=== PATIENT | female | born 2000 | race Caucasian/White ===

== ENCOUNTER → 2018-03-21 | Outpatient (CLI) | payer MEDICAID ==
[~2018-03-21] MED LIST: TOPI100T PO
[2018-03-21 09:48] LABS: HEMOGLOBIN 13.4 G/DL (11.5-16.0); RED BLOOD COUNT 4.56 10^6/uL (4.35-5.85); RED CELL DISTRIBUTION WIDTH 14.1 % (10.0-14.5); WHITE BLOOD COUNT 9.7 10^3/uL (4.3-11.0)
[2018-03-21 10:05] LABS: ALANINE AMINOTRANSFERASE 14 U/L (0-55); ALBUMIN 4.2 GM/DL (3.2-4.5); ALKALINE PHOSPHATASE 125 U/L (40-136); BILIRUBIN,TOTAL 0.3 MG/DL (0.1-1.0); BUN/CREATININE RATIO 20; CALCIUM 8.8 MG/DL (8.5-10.1); CARBON DIOXIDE 16 MMOL/L (21-32); CHLORIDE 113 MMOL/L (98-107); CREATININE SERUM 0.69 MG/DL (0.60-1.30); GFR ESTIMATED > 60; GLUCOSE 80 MG/DL (70-105); POTASSIUM 3.9 MMOL/L (3.6-5.0); SODIUM 137 MMOL/L (135-145)
== END ==
LOC: LAB 09:32
PROVIDERS: ATTEND Psychiatry & Neurology Neurology
DX: G40.909 Epilepsy, unspecified, not intractable, without status epilepticus (principal)
CPT/HCPCS: 36415; 80053; 85027

== ENCOUNTER → 2019-02-13 | Outpatient (CLI) | payer MEDICAID ==
[2019-02-13 14:39] LABS: HEMOGLOBIN 13.7 G/DL (11.5-16.0); MEAN PLATELET VOLUME 11.2 FL (7.4-10.4); RED CELL DISTRIBUTION WIDTH 14.3 % (10.0-14.5); WHITE BLOOD COUNT 7.8 10^3/uL (4.3-11.0)
[2019-02-13 15:02] LABS: ALANINE AMINOTRANSFERASE 15 U/L (0-55); ALBUMIN 4.4 GM/DL (3.2-4.5); ALKALINE PHOSPHATASE 132 U/L (40-136); BILIRUBIN,TOTAL 0.2 MG/DL (0.1-1.0); BUN/CREATININE RATIO 22; CALCIUM 9.4 MG/DL (8.5-10.1); CARBON DIOXIDE 18 MMOL/L (21-32); CHLORIDE 111 MMOL/L (98-107); CREATININE SERUM 0.67 MG/DL (0.60-1.30); GFR ESTIMATED > 60; GLUCOSE 80 MG/DL (70-105); SODIUM 137 MMOL/L (135-145); TOTAL PROTEIN 7.2 GM/DL (6.4-8.2)
== END ==
LOC: LAB 14:28
PROVIDERS: ATTEND Psychiatry & Neurology Neurology
DX: R56.9 Unspecified convulsions (principal)
CPT/HCPCS: 36415; 80053; 85027

== ENCOUNTER 2020-05-14 18:51 | Emergency (ER) | payer MEDICAID ==
[~2020-05-14] VITALS: Ht 63.6 cm; Wt 216.0 kg
[2020-05-14 19:17] LABS: BASOPHILS # (AUTO) 0.1 10^3/uL (0.0-0.1); BASOPHILS % (AUTO) 1 % (0-10); EOSINOPHILS # (AUTO) 0.1 10^3/uL (0.0-0.3); EOSINOPHILS % (AUTO) 1 % (0-10); HEMATOCRIT 37 % (35-52); HEMOGLOBIN 12.1 G/DL (11.5-16.0); LYMPHOCYTES # (AUTO) 2.3 X 10^3 (1.0-4.0); LYMPHOCYTES % (AUTO) 19 % (12-44); MEAN CORPUSCULAR HEMOGLOBIN 29 PG (25-34); MEAN CORPUSCULAR HGB CONC 33 G/DL (32-36); MEAN CORPUSCULAR VOLUME 88 FL (80-99); MEAN PLATELET VOLUME 11.3 FL (7.4-10.4); MONOCYTES % (AUTO) 8 % (0-12); NEUTROPHILS # (AUTO) 8.8 X 10^3 (1.8-7.8); NEUTROPHILS % (AUTO) 72 % (42-75); PLATELET COUNT 343 10^3/uL (130-400); RED CELL DISTRIBUTION WIDTH 13.2 % (10.0-14.5); WHITE BLOOD COUNT 12.3 10^3/uL (4.3-11.0)
[2020-05-14 19:27] LABS: ALANINE AMINOTRANSFERASE 23 U/L (0-55); ALBUMIN 4.1 GM/DL (3.2-4.5); ALKALINE PHOSPHATASE 123 U/L (40-136); BILIRUBIN,TOTAL 0.2 MG/DL (0.1-1.0); BUN/CREATININE RATIO 11; CALCIUM 9.3 MG/DL (8.5-10.1); CARBON DIOXIDE 21 MMOL/L (21-32); CHLORIDE 104 MMOL/L (98-107); CREATININE SERUM 0.65 MG/DL (0.60-1.30); GFR ESTIMATED > 60; GLUCOSE 83 MG/DL (70-105); MAGNESIUM 1.9 MG/DL (1.6-2.4); POTASSIUM 3.6 MMOL/L (3.6-5.0); SODIUM 136 MMOL/L (135-145); TOTAL PROTEIN 7.4 GM/DL (6.4-8.2)
[2020-05-14 19:43] LABS: BILIRUBIN,URINE NEGATIVE (NEGATIVE); CLARITY,URINE CLOUDY; COLOR,URINE YELLOW; GLUCOSE, URINE (UA) NEGATIVE (NEGATIVE); KETONES,URINE 1+ (NEGATIVE); LEUKOCYTE ESTERASE ,URINE NEGATIVE (NEGATIVE); NITRITE,URINE NEGATIVE (NEGATIVE); PROTEIN,URINE 2+ (NEGATIVE)
[2020-05-14 19:47] LABS: TSH (THYROID ANALYZER) 0.74 UIU/ML (0.35-4.94)
--- NOTE | 2020-05-14 19:48 | ED Neurological Problem ---
General Chief Complaint: Neurological Problems Stated Complaint: SEIZURE Nursing Triage Note: patient at park on phone with mom, mom states patient quit talking to her, when mom arrived to [place] patient sitting on bench. slurring words. . hx seizure disorder. approx 9 wks preg. complaint of back pain and facial pain. left side eye bruising and abrasions. Nursing Sepsis Screen: No Definite Risk Source: patient, family Exam Limitations: no limitations History of Present Illness Date Seen by Provider: May 14, 2020 Time Seen by Provider: 18:53 Initial Comments This 20-year-old young lady at approximately 9 weeks gestational age presents to the emergency room after having a seizure. She has epilepsy and cerebral palsy with some chronic right-sided deficits. She has been treated for epilepsy and has not had a seizure in 3 years. When she discovered the her medications were adjusted/changed by Dr. Whittington and Dr. Sánchez. She now takes Keppra 1000 mg twice daily and Lamictal 100 mg twice daily. Patient reportedly was having a conversation with her mother on the phone when she stated she was feeling numbness in her extremities and then suddenly stopped talking. Mother drove from out of town to the park where the patient had been sitting at a picnic table. When mother arrived she found her sitting at the table but with an abrasion on her face. Apparently the patient had fallen to the ground from a sitting position resulting in the abrasion. She was ambulatory on scene but seem post ictal with a little bit of a wobbly gait and some slurring of her words. She is now at baseline according to mother. Mother brought her by private vehicle. Patient's history was discussed with Dr. Landry who reviewed the clinic chart and her recent medication changes. LMP was March 15. She has not yet had an ultrasound. Allergies and Home Medications Allergies Coded Allergies: phenobarbital (Verified Allergy, Intermediate, 10/11/13) seizures last longer egg (Verified Allergy, Unknown, ANAPHYLAXIS, 10/11/13) Home Medications Topiramate 100 Mg Tab, 100 MG PO BID, (Reported) Patient Home Medication List Home Medication List Reviewed: Yes Review of Systems Review of Systems Constitutional: no symptoms reported Eyes: No Symptoms Reported Ears, Nose, Mouth, Throat: no symptoms reported Respiratory: no symptoms reported Cardiovascular: no symptoms reported Gastrointestinal: no symptoms reported : Yes LMP: March 15, 2010 Musculoskeletal: no symptoms reported Skin: see HPI Psychiatric/Neurological: See HPI Endocrine: No Symptoms Reported Hematologic/Lymphatic: No Symptoms Reported Past Jckilal-Kuoioc-Bricxk Hx Past Med/Social Hx: Reviewed and Corrections made Patient Social History 2nd Hand Smoke Exposure: No Recent Foreign Travel: No Contact w/Someone Who Travel: No Recent Infectious Disease Expo: No Recent Hopitalizations: No Physical Abuse: No Sexual Abuse: No Mistreated: No Fear: No Seasonal Allergies Seasonal Allergies: No Past Medical History Surgeries: Yes (right ankle, dental) Respiratory: No Cardiac: No Neurological: Yes (cerebral palsey, intellectual disability) Seizure Disorder : Yes Last Menstrual Period: March 15, 2020 Hx : 1 Hx Para: 0 Hx Total # of Abortions (Sp): 0 Gastrointestinal: No Musculoskeletal: Yes (right sided weakness) Contracture Endocrine: No HEENT: No Cancer: No Psychosocial: No Integumentary: No Blood Disorders: No Adverse Reaction/Blood Tranf: No Family Medical History No Pertinent Family Hx Physical Exam Vital Signs Vital Signs - First Documented 05/14/20 18:56 Temp 36.9 Pulse 85 Resp 24 B/P (MAP) 129/78 (95) Pulse Ox 99 O2 Delivery Room Air Capillary Refill : NONE Height, Weight, BMI Height: 5'3.00" Weight: 197lbs. oz. 89.829691vv; 533.00 BMI Method:Stated General Appearance: WD/WN, no apparent distress HEENT: PERRL/EOMI, TMs normal, pharynx normal, other ([place] abrasions to the left side of her face) Neck: non-tender, normal inspection Respiratory: lungs clear, normal breath sounds, no respiratory distress, no accessory muscle use Cardiovascular: regular rate, rhythm, no edema, no murmur Gastrointestinal: normal bowel sounds, non tender, soft Extremities: normal inspection, no pedal edema Neurologic/Psychiatric: personal caregiver II-XII nml as tested, alert, normal mood/affect, oriented x 3, other (weakness to the right upper and lower extremity, chronic and unchanged) Skin: normal color, warm/dry Progress/Results/Core Measures Results/Orders Lab Results Laboratory Tests Test 05/14/20 18:55 05/14/20 19:33 Range/Units White Blood Count 12.3 H 4.3-11.0 10^3/uL Red Blood Count 4.22 L 4.35-5.85 10^6/uL Hemoglobin 12.1 11.5-16.0 G/DL Hematocrit 37 35-52 % Mean Corpuscular Volume 88 80-99 FL Mean Corpuscular Hemoglobin 29 25-34 PG Mean Corpuscular Hemoglobin Concent 33 32-36 G/DL Red Cell Distribution Width 13.2 10.0-14.5 % Platelet Count 343 130-400 10^3/uL Mean Platelet Volume 11.3 H 7.4-10.4 FL Neutrophils (%) (Auto) 72 42-75 % Lymphocytes (%) (Auto) 19 12-44 % Monocytes (%) (Auto) 8 0-12 % Eosinophils (%) (Auto) 1 0-10 % Basophils (%) (Auto) 1 0-10 % Neutrophils # (Auto) 8.8 H 1.8-7.8 X 10^3 Lymphocytes # (Auto) 2.3 1.0-4.0 X 10^3 Monocytes # (Auto) 1.0 0.0-1.0 X 10^3 Eosinophils # (Auto) 0.1 0.0-0.3 10^3/uL Basophils # (Auto) 0.1 0.0-0.1 10^3/uL Sodium Level 136 135-145 MMOL/L Potassium Level 3.6 3.6-5.0 MMOL/L Chloride Level 104 98-107 MMOL/L Carbon Dioxide Level 21 21-32 MMOL/L Anion Gap 11 5-14 MMOL/L Blood Urea Nitrogen 7 7-18 MG/DL Creatinine 0.65 0.60-1.30 MG/DL Estimat Glomerular Filtration Rate > 60 BUN/Creatinine Ratio 11 Glucose Level 83 70-105 MG/DL Calcium Level 9.3 8.5-10.1 MG/DL Corrected Calcium 9.2 8.5-10.1 MG/DL Magnesium Level 1.9 1.6-2.4 MG/DL Total Bilirubin 0.2 0.1-1.0 MG/DL Aspartate Amino Transf (AST/SGOT) 16 5-34 U/L Alanine Aminotransferase (ALT/SGPT) 23 0-55 U/L Alkaline Phosphatase 123 40-136 U/L Total Protein 7.4 6.4-8.2 GM/DL Albumin 4.1 3.2-4.5 GM/DL TSH [place] Testing 0.74 0.35-4.94 UIU/ML Human Chorionic Gonadotropin, Quant 024040 H <5 MIU/ML Urine Color YELLOW Urine Clarity CLOUDY Urine pH 6.0 5-9 Urine Specific [place] >=1.030 1.016-1.022 Urine Protein 2+ H NEGATIVE Urine Glucose (UA) NEGATIVE NEGATIVE Urine Ketones 1+ H NEGATIVE Urine Nitrite NEGATIVE NEGATIVE Urine Bilirubin NEGATIVE NEGATIVE Urine Urobilinogen 0.2 < = 1.0 MG/DL Urine Leukocyte Esterase NEGATIVE NEGATIVE Urine RBC (Auto) NEGATIVE NEGATIVE Urine RBC NONE /HPF Urine WBC 2-5 /HPF Urine Squamous Epithelial Cells 10-25 H /HPF Urine Crystals PRESENT H /LPF Urine Amorphous Sediment FEW MICHELLE URATES H /LPF Urine Bacteria TRACE /HPF Urine Casts NONE /LPF Urine Mucus LARGE H /LPF Urine Culture Indicated NO My Orders Orders - BEVERLY RAMIREZ MD Cbc With Automated Diff (05/14/20 19:05) Comprehensive Metabolic Panel (05/14/20 19:05) Magnesium (05/14/20 19:05) Thyroid Analyzer (05/14/20 19:05) Ua Culture If Indicated (05/14/20 19:05) Ed Iv/Invasive Line Start (05/14/20 19:05) Lamotrigine Tablet (Lamictal Tablet) (05/14/20 19:30) Levetiracetam Injection (Keppra Injectio (05/14/20 21:00) Hcg,Quantitative (05/14/20 19:40) Medications Given in ED Current Medications Medications Dose Ordered Sig/Rolo Route Start Time Stop Time Status Last Admin Dose Admin Lamotrigine 100 mg ONCE ONCE PO 05/14/20 19:30 05/14/20 19:31 DC 05/14/20 20:08 100 MG Levetiracetam 1000 mg/Sodium Chloride 110 ml @ 440 mls/hr Q12HR ONCE IV 05/14/20 21:00 05/14/20 21:14 DC 05/14/20 19:47 440 MLS/HR Vital Signs/I&O 05/14/20 05/14/20 18:56 22:23 Temp 36.9 36.9 Pulse 85 85 Resp 24 24 B/P (MAP) 129/78 (95) 103/57 (95) Pulse Ox 99 20 O2 Delivery Room Air Room Air 05/15/20 00:00 Intake Total 100 ml Balance 100 ml Blood Pressure Mean: 95 Progress Progress Note : Progress Note Case was reviewed with Dr. Landry. After working through the situation together, we decided to give a dose of IV Keppra here and then increase Keppra to 1000 mg 3 times a day. Patient should then follow up with her neurologist on Sunday. Workup was unremarkable and patient had no further seizure-like activity. Departure Impression Primary Impression: Seizure Additional Impression: Qualified Codes: Z3A.09 - 9 weeks gestation of Disposition: HOME, SELF-CARE Condition: Improved Departure-Patient Inst. Decision time for Depature: 22:10 Referrals: REBEKA WHITTINGTON MD (PCP/Family) Primary Care Physician Patient Instructions: Epilepsy and Add. Discharge Instructions: Increase your Keppra (Levetiracetam) to 1000 mg 3 times a day. Do not change your dose of Lamictal (lamotrigine). Avoid any activities that would put you at risk should you have another seizure. Call Dr. Sánchez first thing on Sunday morning to discuss further treatment of your epilepsy. Eat a well-balanced diet, get plenty of rest, and drink plenty of clear liquids. Return to care or call your doctor if you have any further problems or concerns. All discharge instructions reviewed with patient and/or family. Voiced understanding. Copy Copies To 1: REBEKA WHITTINGTON MD Copies To 2: TOSHA SÁNCHEZ MD, JOSHUA T MD May 14, 2020 19:48
[2020-05-14 19:56] LABS: AMORPHOUS SEDIMENT,UR FEW AMOR URATES /LPF; BACTERIA,URINE TRACE /HPF
[2020-05-14] MEDS ORDERED: LEVETIRACETAM INJECTION 1,000 MG in NS (IVPB) 100 ML IV ONE (21:00)
--- NOTE | 2020-05-14 21:03 | NUR ---
Received report from NICOLA Marquez at this time.
[2020-05-14 22:23] VITALS: BP 103/57
== END 2020-05-14 22:21 | disposition home or self-care (01) ==
LOC: EDUNIT# 18:51 → ER 18:52
DX: O99.351 Diseases of the nervous system complicating pregnancy, first trimester (principal); G40.909 Epilepsy, unspecified, not intractable, without status epilepticus; G80.9 Cerebral palsy, unspecified; S00.81XA Abrasion of other part of head, initial encounter; Z3A.09 9 weeks gestation of pregnancy
CPT/HCPCS: 36415; 80053; 81000; 83735; 84443; 84702; 85025; 96365

== ENCOUNTER 2020-07-18 19:55 | Emergency (ER) | payer MEDICAID ==
[~2020-07-18] VITALS: Ht 167 cm; Wt 100.0 kg
[2020-07-18] MEDS ORDERED: LACTATED RINGERS 1,000 ML IV ONE (20:12)
[2020-07-18] MEDS ORDERED: LORazepam INJ 2 MG/ML (ATIVAN) VIAL ONE (20:19)
[2020-07-18] MEDS ORDERED: LORazepam INJ 2 MG/ML (ATIVAN) VIAL IVP PRN (20:30)
--- NOTE | 2020-07-18 20:30 | ED General ---
General Stated Complaint: PREGANCY SIEZURE Source of Information: Patient Exam Limitations: No Limitations History of Present Illness Date Seen by Provider: Jul 18, 2020 Time Seen by Provider: 20:24 Initial Comments Most of the history is obtained from EMS and the patient's mother via telephone. Patient presents to ER by EMS from home in [facility] with reports of seizure activity. Patient has a history of cerebral palsy with some chronic right arm and leg deficit. She also has epilepsy and mild mental retardation according to mother. She takes Lamictal and Keppra. Mother states she is very compliant with taking her medications. She states she's been healthy recently including this afternoon she was acting normally. Mother states that for about one hour she was unresponsive and kept turning her head to the right and her eyes were looking to the right. No fevers no cough and has been acting perfectly normal and perfectly healthy until today. Mother reports this will be her second seizure in 4 years. She is 17 weeks gestation tomorrow . Upon EMS arrival she was seizing. They gave 4 g of magnesium sulfate IV. She sees Dr. Whittington from [facility] as primary care and for obstetrical purposes. Timing/Duration: 1-2 Days Severity: Moderate Allergies and Home Medications Allergies Coded Allergies: phenobarbital (Verified Allergy, Intermediate, 10/11/13) seizures last longer egg (Verified Allergy, Unknown, ANAPHYLAXIS, 10/11/13) Home Medications Topiramate 100 Mg Tab, 100 MG PO BID, (Reported) Patient Home Medication List Home Medication List Reviewed: Yes Review of Systems Review of Systems Constitutional: other (unable to obtain) Past Wjgvdbh-Hufzxr-Hekbwh Hx Patient Social History 2nd Hand Smoke Exposure: No Recent Foreign Travel: No Contact w/Someone Who Travel: No Recent Hopitalizations: No Seasonal Allergies Seasonal Allergies: No Past Medical History Surgeries: Yes (right ankle, dental) Respiratory: No Cardiac: No Neurological: Yes (cerebral palsey, intellectual disability) Seizure Disorder Gastrointestinal: No Musculoskeletal: Yes (right sided weakness) Contracture Endocrine: No HEENT: No Cancer: No Psychosocial: No Integumentary: No Blood Disorders: No Adverse Reaction/Blood Tranf: No Family Medical History No Pertinent Family Hx Physical Exam Vital Signs Capillary Refill : Height, Weight, BMI Height: 5'3.00" Weight: 197lbs. oz. 89.082858lc; 533.00 BMI Method:Stated General Appearance: Other (head deviated to the right, nystagmus persists. No twitching of any extremity, no convulsions or seizure-like activity otherwise. She is essentially unresponsive until he put a catheter in at which point she sits up in bed and states "dad take it out, I'm going to Pee") Eyes: Bilateral Eye PERRL, Bilateral Eye EOMI, Bilateral Eye Other (nystagmus) HEENT: PERRL/EOMI, TMs Normal Neck: Full Range of Motion, Normal Inspection Respiratory: Normal Breath Sounds, No Accessory Muscle Use, No Respiratory Distress, Other (84% on room air increased to 93% on 4 L.) Cardiovascular: Regular Rate, Rhythm, Normal Peripheral Pulses, Tachycardia (rate of 134) Extremity: Normal Capillary Refill, Normal Inspection Skin: Normal Color, Warm/Dry, Other (Bit of atrophy to the right arm and to a lesser degree the right leg which is apparently normal) Progress/Results/Core Measures Suspected Sepsis SIRS Temperature: Pulse: Respiratory Rate: Laboratory Tests 07/18/20 20:12: White Blood Count 22.5H Blood Pressure / Mean: Laboratory Tests 07/18/20 20:12: Creatinine 0.73, Platelet Count 452H, Total Bilirubin 0.1 Results/Orders Lab Results Laboratory Tests Test 07/18/20 20:12 07/18/20 20:18 Range/Units White Blood Count 22.5 H 4.3-11.0 10^3/uL Red Blood Count 3.97 L 4.35-5.85 10^6/uL Hemoglobin 11.3 L 11.5-16.0 G/DL Hematocrit 34 L 35-52 % Mean Corpuscular Volume 86 80-99 FL Mean Corpuscular Hemoglobin 29 25-34 PG Mean Corpuscular Hemoglobin Concent 33 32-36 G/DL Red Cell Distribution Width 13.4 10.0-14.5 % Platelet Count 452 H 130-400 10^3/uL Mean Platelet Volume 11.4 H 7.4-10.4 FL Neutrophils (%) (Auto) 77 H 42-75 % Lymphocytes (%) (Auto) 17 12-44 % Monocytes (%) (Auto) 5 0-12 % Eosinophils (%) (Auto) 1 0-10 % Basophils (%) (Auto) 0 0-10 % Neutrophils # (Auto) 17.3 H 1.8-7.8 X 10^3 Lymphocytes # (Auto) 3.8 1.0-4.0 X 10^3 Monocytes # (Auto) 1.2 H 0.0-1.0 X 10^3 Eosinophils # (Auto) 0.2 0.0-0.3 10^3/uL Basophils # (Auto) 0.1 0.0-0.1 10^3/uL Neutrophils % (Manual) 70 % Lymphocytes % (Manual) 26 % Monocytes % (Manual) 3 % Band Neutrophils 1 % Blood Morphology Comment NORMAL Sodium Level 136 135-145 MMOL/L Potassium Level 3.9 3.6-5.0 MMOL/L Chloride Level 105 98-107 MMOL/L Carbon Dioxide Level 17 L 21-32 MMOL/L Anion Gap 14 5-14 MMOL/L Blood Urea Nitrogen 6 L 7-18 MG/DL Creatinine 0.73 0.60-1.30 MG/DL Estimat Glomerular Filtration Rate > 60 BUN/Creatinine Ratio 8 Glucose Level 200 H 70-105 MG/DL Calcium Level 8.2 L 8.5-10.1 MG/DL Corrected Calcium 8.7 8.5-10.1 MG/DL Total Bilirubin 0.1 0.1-1.0 MG/DL Aspartate Amino Transf (AST/SGOT) 19 5-34 U/L Alanine Aminotransferase (ALT/SGPT) 26 0-55 U/L Alkaline Phosphatase 160 H 40-136 U/L Total Protein 6.2 L 6.4-8.2 GM/DL Albumin 3.4 3.2-4.5 GM/DL Urine Color YELLOW Urine Clarity CLEAR Urine pH 5.5 5-9 Urine Specific [place] >=1.030 1.016-1.022 Urine Protein 2+ H NEGATIVE Urine Glucose (UA) TRACE H NEGATIVE Urine Ketones NEGATIVE NEGATIVE Urine Nitrite NEGATIVE NEGATIVE Urine Bilirubin NEGATIVE NEGATIVE Urine Urobilinogen 0.2 < = 1.0 MG/DL Urine Leukocyte Esterase NEGATIVE NEGATIVE Urine RBC (Auto) 1+ H NEGATIVE Urine RBC 5-10 H /HPF Urine WBC 0-2 /HPF Urine Squamous Epithelial Cells 10-25 H /HPF Urine Crystals NONE /LPF Urine Amorphous Sediment LARGE MICHELLE URATES H /LPF Urine Bacteria FEW H /HPF Urine Casts NONE /LPF Urine Mucus NEGATIVE /LPF Urine Culture Indicated NO Urine Opiates Screen NEGATIVE NEGATIVE Urine Oxycodone Screen NEGATIVE NEGATIVE Urine Methadone Screen NEGATIVE NEGATIVE Urine Propoxyphene Screen NEGATIVE NEGATIVE Urine Barbiturates Screen NEGATIVE NEGATIVE Ur Tricyclic Antidepressants Screen NEGATIVE NEGATIVE Urine Phencyclidine Screen NEGATIVE NEGATIVE Urine Amphetamines Screen NEGATIVE NEGATIVE Urine Methamphetamines Screen NEGATIVE NEGATIVE Urine Benzodiazepines Screen NEGATIVE NEGATIVE Urine Cocaine Screen NEGATIVE NEGATIVE Urine Cannabinoids Screen NEGATIVE NEGATIVE My Orders Orders - MERLIN CLAIRE APRN Ct Head Wo (07/18/20 20:21) Chest 1 View, Ap/Pa Only (07/18/20 20:21) Cbc With Automated Diff (07/18/20 20:21) Comprehensive Metabolic Panel (07/18/20 20:21) Ua Culture If Indicated (07/18/20 20:21) Drug Screen Stat (Urine) (07/18/20 20:21) Ed Iv/Invasive Line Start (07/18/20 20:21) Lorazepam Injection (Ativan Injection) (07/18/20 20:30) Manual Differential (07/18/20 20:12) Ondansetron Injection (Zofran Injectio (07/18/20 20:41) Promethazine Injection (Phenergan Injec (07/18/20 22:00) Medications Given in ED Current Medications Medications Dose Ordered Sig/Rolo Route Start Time Stop Time Status Last Admin Dose Admin Lactated Ringer's 1,000 ml @ ud STK-MED ONCE IV 07/18/20 20:12 07/18/20 20:17 DC 07/18/20 20:23 999 MLS/HR Lorazepam 1 mg ONCE PRN IVP 07/18/20 20:30 07/18/20 20:26 1 MG Ondansetron HCl 4 mg STK-MED ONCE .ROUTE 07/18/20 20:41 07/18/20 20:46 DC 07/18/20 21:38 8 MG Vital Signs/I&O Capillary Refill : Departure Communication (Admissions) Bedside ultrasound shows positive cardiac motion with cardiac activity, heart tones measured at 154 2115*-nystagmus has resolved, more alert, more responsive. Oxygen saturations still drops to about 90% without supplemental oxygen, still lethargic and hypoventilating. 2228-spoke with Dr. Landry from obstetrics here, would like the patient transferred to a facility with neurology. Then spoke with transfer center. Dr. Gilmore has accepted the patient. In the interval patient did develop some persistent nausea without vomiting, Phenergan 12.5 mg ordered and given. She has had no seizure activity for us. Impression Primary Impression: Seizure disorder during Qualified Codes: O99.350 - Diseases of the nervous system complicating , unspecified trimester; G40.909 - Epilepsy, unspecified, not intractable, without status epilepticus [facility] Condition: Stable Departure-Patient Inst. Referrals: REBEKA WHITTINGTON MD (PCP/Family) Primary Care Physician MERLIN CLAIRE APRN Jul 18, 2020 20:30
[2020-07-18 20:31] LABS: BASOPHILS # (AUTO) 0.1 10^3/uL (0.0-0.1); BASOPHILS % (AUTO) 0 % (0-10); EOSINOPHILS # (AUTO) 0.2 10^3/uL (0.0-0.3); EOSINOPHILS % (AUTO) 1 % (0-10); HEMATOCRIT 34 % (35-52); HEMOGLOBIN 11.3 G/DL (11.5-16.0); LYMPHOCYTES # (AUTO) 3.8 X 10^3 (1.0-4.0); LYMPHOCYTES % (AUTO) 17 % (12-44); MEAN CORPUSCULAR HEMOGLOBIN 29 PG (25-34); MEAN CORPUSCULAR HGB CONC 33 G/DL (32-36); MEAN CORPUSCULAR VOLUME 86 FL (80-99); MEAN PLATELET VOLUME 11.4 FL (7.4-10.4); MONOCYTES # (AUTO) 1.2 X 10^3 (0.0-1.0); MONOCYTES % (AUTO) 5 % (0-12); NEUTROPHILS # (AUTO) 17.3 X 10^3 (1.8-7.8); NEUTROPHILS % (AUTO) 77 % (42-75); PLATELET COUNT 452 10^3/uL (130-400); WHITE BLOOD COUNT 22.5 10^3/uL (4.3-11.0)
[2020-07-18 20:35] LABS: BILIRUBIN,URINE NEGATIVE (NEGATIVE); CLARITY,URINE CLEAR; COLOR,URINE YELLOW; GLUCOSE, URINE (UA) TRACE (NEGATIVE); KETONES,URINE NEGATIVE (NEGATIVE); LEUKOCYTE ESTERASE ,URINE NEGATIVE (NEGATIVE); NITRITE,URINE NEGATIVE (NEGATIVE); PH,URINE 5.5 (5-9); PROTEIN,URINE 2+ (NEGATIVE)
[2020-07-18] MEDS ORDERED: ONDANSETRON 4 MG/2 ML (SDV) Z0FRAN ONE (20:41)
[2020-07-18 20:43] LABS: BACTERIA,URINE FEW /HPF; WBC,URINE 0-2 /HPF
[2020-07-18 20:44] LABS: AMORPHOUS SEDIMENT,UR LARGE AMOR URATES /LPF
[2020-07-18 20:50] LABS: ALANINE AMINOTRANSFERASE 26 U/L (0-55); ALBUMIN 3.4 GM/DL (3.2-4.5); ALKALINE PHOSPHATASE 160 U/L (40-136); BILIRUBIN,TOTAL 0.1 MG/DL (0.1-1.0); BUN/CREATININE RATIO 8; CALCIUM 8.2 MG/DL (8.5-10.1); CARBON DIOXIDE 17 MMOL/L (21-32); CHLORIDE 105 MMOL/L (98-107); CREATININE SERUM 0.73 MG/DL (0.60-1.30); GFR ESTIMATED > 60; GLUCOSE 200 MG/DL (70-105); POTASSIUM 3.9 MMOL/L (3.6-5.0); SODIUM 136 MMOL/L (135-145); TOTAL PROTEIN 6.2 GM/DL (6.4-8.2)
[2020-07-18 20:59] LABS: BAND NEUTROPHILS 1 %; LYMPHOCYTES % (MANUAL) 26 %; MONOCYTES % (MANUAL) 3 %; NEUTROPHILS % (MANUAL) 70 %; RBC MORPH NORMAL
[2020-07-18 21:00] LABS: AMPHETAMINE SCREEN, URINE NEGATIVE (NEGATIVE); BARBITURATE SCREEN URINE NEGATIVE (NEGATIVE); BENZODIAZEPINES SCREEN URINE NEGATIVE (NEGATIVE); CANNABINOID SCREEN, URINE NEGATIVE (NEGATIVE); COCAINE SCREEN URINE NEGATIVE (NEGATIVE); METHADONE STAT NEGATIVE (NEGATIVE); METHAMPHETAMINE SCREEN URINE S NEGATIVE (NEGATIVE); OPIATE SCREEN URINE NEGATIVE (NEGATIVE); OXYCODONE STAT NEGATIVE (NEGATIVE); PROPOXYPHENE STAT NEGATIVE (NEGATIVE); TRICYCLIC ANTIDEPRESSANTS SCRE NEGATIVE (NEGATIVE)
--- NOTE | 2020-07-18 21:23 | Diagnostic Imaging Report ---
PROCEDURE: CT head without contrast. TECHNIQUE: Multiple contiguous axial images were obtained through the brain without the use of intravenous contrast. Auto Exposure Controls were utilized during the CT exam to meet ALARA standards for radiation dose reduction. INDICATION: Seizure. COMPARISON: CT head of 10/11/2013. FINDINGS: No hyperdense hemorrhage or new space-occupying mass. Stable cystic focus in the left cerebellar hemisphere. No hydrocephalus or midline shift. Asymmetric dilatation of the left lateral ventricle is unchanged since prior exam. There are no subependymal nodules appreciated. Basilar cisterns are patent. No skull fracture. Paranasal sinuses and mastoid air cells are clear. IMPRESSION: 1. No acute intracranial process by CT. 2. Unchanged mild asymmetric dilatation of the left lateral ventricle that is most likely developmental variant. Dictated by: Dictated on workstation # [id number]
--- NOTE | 2020-07-18 21:27 | Diagnostic Imaging Report ---
CHEST 1 VIEW, AP/PA ONLY Indication: Seizure Comparison: None available. Findings: No focal airspace disease in the visualized lungs. Please note that the posterior lower lobes are poorly evaluated by portable radiography. No pleural effusion or pneumothorax. Normal cardiomediastinal silhouette. Impression: 1. No acute cardiopulmonary process by portable radiography. Dictated by: Dictated on workstation # [id number]
[2020-07-18 21:30] VITALS: BP 136/87
[2020-07-18] MEDS ORDERED: PROMETHAZINE INJ 25 MG/ML (PHENERGAN) AMP IVP ONE (22:00)
[2020-07-18 23:04] VITALS: BP 136/87
== END 2020-07-18 23:06 | disposition short-term general hospital (02) ==
LOC: EDUNIT# 19:55 → ER 19:56
DX: O99.352 Diseases of the nervous system complicating pregnancy, second trimester (principal); G40.909 Epilepsy, unspecified, not intractable, without status epilepticus; Z88.8 Allergy status to other drugs, medicaments and biological substances; Z3A.00 Weeks of gestation of pregnancy not specified
CPT/HCPCS: 36415; 70450; 71045; 80053; 80306; 81000; 85007; 85027

== ENCOUNTER 2021-04-04 00:42 | Emergency (ER) | payer MEDICAID ==
[~2021-04-04] VITALS: Ht 157.5 cm; Wt 105.7 kg
[2021-04-04 01:48] LABS: BILIRUBIN,URINE NEGATIVE (NEGATIVE); CLARITY,URINE CLEAR; COLOR,URINE ORANGE; GLUCOSE, URINE (UA) NEGATIVE (NEGATIVE); KETONES,URINE NEGATIVE (NEGATIVE); LEUKOCYTE ESTERASE ,URINE TRACE (NEGATIVE); NITRITE,URINE NEGATIVE (NEGATIVE); PROTEIN,URINE 1+ (NEGATIVE)
[2021-04-04 01:55] LABS: RBC,URINE 50-100 /HPF
[2021-04-04] MEDS ORDERED: KETOROLAC 30 MG/ML VIAL IVP STA (01:55)
[2021-04-04 01:56] LABS: AMORPHOUS SEDIMENT,UR FEW AMOR PHOSPHATE /LPF; BACTERIA,URINE FEW /HPF
[2021-04-04 02:00] LABS: BASOPHILS # (AUTO) 0.1 10^3/uL (0.0-0.1); BASOPHILS % (AUTO) 1 % (0-10); EOSINOPHILS # (AUTO) 0.2 10^3/uL (0.0-0.3); EOSINOPHILS % (AUTO) 1 % (0-10); HEMATOCRIT 40 % (35-52); HEMOGLOBIN 12.8 g/dL (11.5-16.0); LYMPHOCYTES # (AUTO) 2.9 10^3/uL (1.0-4.0); LYMPHOCYTES % (AUTO) 19 % (12-44); MEAN CORPUSCULAR HEMOGLOBIN 27 pg (25-34); MEAN CORPUSCULAR HGB CONC 32 g/dL (32-36); MEAN CORPUSCULAR VOLUME 85 fL (80-99); MEAN PLATELET VOLUME 11.4 fL (9.0-12.2); MONOCYTES # (AUTO) 0.9 10^3/uL (0.0-1.0); MONOCYTES % (AUTO) 6 % (0-12); NEUTROPHILS # (AUTO) 11.7 10^3/uL (1.8-7.8); NEUTROPHILS % (AUTO) 74 % (42-75); PLATELET COUNT 422 10^3/uL (130-400); WHITE BLOOD COUNT 15.8 10^3/uL (4.3-11.0)
[2021-04-04] MEDS ORDERED: LACTATED RINGERS 1,000 ML IV ONE (02:00)
[2021-04-04] MEDS ORDERED: PANTOPRAZOLE 40 MG (PROTONIX) VIAL IV ONE (02:00)
[2021-04-04] MEDS ORDERED: ONDANSETRON 4 MG/2 ML (SDV) Z0FRAN IVP ONE (02:00)
[2021-04-04 02:05] LABS: ALBUMIN 4.1 GM/DL (3.2-4.5); CHLORIDE 110 MMOL/L (98-107); POTASSIUM 3.9 MMOL/L (3.6-5.0); SODIUM 140 MMOL/L (135-145)
[2021-04-04 02:06] LABS: AMYLASE 50 U/L (25-125); CALCIUM 9.4 MG/DL (8.5-10.1)
[2021-04-04 02:07] LABS: GLUCOSE 112 MG/DL (70-105); TOTAL PROTEIN 6.9 GM/DL (6.4-8.2)
[2021-04-04 02:08] LABS: CARBON DIOXIDE 18 MMOL/L (21-32)
[2021-04-04 02:09] LABS: BILIRUBIN,TOTAL 0.3 MG/DL (0.1-1.0)
[2021-04-04 02:10] LABS: ALKALINE PHOSPHATASE 208 U/L (40-136)
[2021-04-04 02:11] LABS: CREATININE SERUM 0.81 MG/DL (0.60-1.30); GFR ESTIMATED > 60
[2021-04-04 02:12] LABS: BUN/CREATININE RATIO 25
[2021-04-04 02:14] LABS: ALANINE AMINOTRANSFERASE 37 U/L (0-55); LIPASE 23 U/L (8-78)
[2021-04-04 02:18] LABS: EOSINOPHILS % (MANUAL) 2 %; LYMPHOCYTES % (MANUAL) 23 %; MONOCYTES % (MANUAL) 8 %; NEUTROPHILS % (MANUAL) 67 %; RBC MORPH NORMAL
[2021-04-04] MEDS ORDERED: HOLD METFORMIN - RECEIVED CONTRAST 20 ML VIAL IV SCH (02:45)
[2021-04-04] MEDS ORDERED: CATHETER FLUSH 10 ML SYR IV PRN (02:45)
[2021-04-04] MEDS ORDERED: IOHEXOL 350 MG/ML 100 ML (OMNIPAQUE 350) VIAL IV ONE (02:45)
[2021-04-04] MEDS ORDERED: NS 100 ML (IVPB) BAG IV ONE (02:45)
--- NOTE | 2021-04-04 03:01 | ED Abdominal Pain ---
General Chief Complaint: Abdominal/GI Problems Stated Complaint: STOMACH PAIN/ELEV PULSE AND BP Nursing Triage Note: AMBULATES TO ROOM #8 VIA POV W/CO MEDIAL ABD DISCOMFORT AND NAUSEA. STATES DISCOMFORT BEGAN UPON RISE ON 04/03/21 AND HAS BEEN CONSTANT THROUGHOUT THE DAY. DESCRIBED DISCOMFORT AT "[facility]." Sepsis Screen: No Definite Risk Allergies and Home Medications Allergies Coded Allergies: phenobarbital (Verified Allergy, Intermediate, 10/11/13) seizures last longer egg (Verified Allergy, Unknown, ANAPHYLAXIS, 10/11/13) Home Medications Topiramate 100 Mg Tab, 100 MG PO BID, (Reported) Past Uajbovw-Hhvung-Xglver Hx Patient Social History Alcohol Use: Denies Use Smoking Status: Never a Smoker 2nd Hand Smoke Exposure: No Recent Infectious Disease Expo: No Recent Hopitalizations: No Seasonal Allergies Seasonal Allergies: No Past Medical History Surgeries: Yes (right ankle, dental) Respiratory: No Cardiac: No Neurological: Yes (cerebral palsey, intellectual disability) Seizure Disorder Gastrointestinal: No Musculoskeletal: Yes (right sided weakness) Contracture Endocrine: No HEENT: No Cancer: No Psychosocial: No Integumentary: No Blood Disorders: No Adverse Reaction/Blood Tranf: No Family Medical History No Pertinent Family Hx Physical Exam Vital Signs Vital Signs - First Documented 04/04/21 01:04 Temp 36.5 Pulse 96 Resp 18 B/P (MAP) 146/96 (113) Pulse Ox 99 O2 Delivery Room Air Capillary Refill : Less Than 3 Seconds Height/Weight/BMI Height: 5'3.00" Weight: 197lbs. oz. 89.961617zx; 42.00 BMI Method:Stated Progress/Results/Core Measures Results/Orders Lab Results Laboratory Tests Test 04/04/21 01:10 04/04/21 01:12 Range/Units White Blood Count 15.8 H 4.3-11.0 10^3/uL Red Blood Count 4.77 3.80-5.11 10^6/uL Hemoglobin 12.8 11.5-16.0 g/dL Hematocrit 40 35-52 % Mean Corpuscular Volume 85 80-99 fL Mean Corpuscular Hemoglobin 27 25-34 pg Mean Corpuscular Hemoglobin Concent 32 32-36 g/dL Red Cell Distribution Width 14.9 H 10.0-14.5 % Platelet Count 422 H 130-400 10^3/uL Mean Platelet Volume 11.4 9.0-12.2 fL Immature Granulocyte % (Auto) 0 % Neutrophils (%) (Auto) 74 42-75 % Lymphocytes (%) (Auto) 19 12-44 % Monocytes (%) (Auto) 6 0-12 % Eosinophils (%) (Auto) 1 0-10 % Basophils (%) (Auto) 1 0-10 % Neutrophils # (Auto) 11.7 H 1.8-7.8 10^3/uL Lymphocytes # (Auto) 2.9 1.0-4.0 10^3/uL Monocytes # (Auto) 0.9 0.0-1.0 10^3/uL Eosinophils # (Auto) 0.2 0.0-0.3 10^3/uL Basophils # (Auto) 0.1 0.0-0.1 10^3/uL Immature Granulocyte # (Auto) 0.0 0.0-0.1 10^3/uL Neutrophils % (Manual) 67 % Lymphocytes % (Manual) 23 % Monocytes % (Manual) 8 % Eosinophils % (Manual) 2 % Blood Morphology Comment NORMAL Sodium Level 140 135-145 MMOL/L Potassium Level 3.9 3.6-5.0 MMOL/L Chloride Level 110 H 98-107 MMOL/L Carbon Dioxide Level 18 L 21-32 MMOL/L Anion Gap 12 5-14 MMOL/L Blood Urea Nitrogen 20 H 7-18 MG/DL Creatinine 0.81 0.60-1.30 MG/DL Estimat Glomerular Filtration Rate > 60 BUN/Creatinine Ratio 25 Glucose Level 112 H 70-105 MG/DL Calcium Level 9.4 8.5-10.1 MG/DL Corrected Calcium 9.3 8.5-10.1 MG/DL Total Bilirubin 0.3 0.1-1.0 MG/DL Aspartate Amino Transf (AST/SGOT) 46 H 5-34 U/L Alanine Aminotransferase (ALT/SGPT) 37 0-55 U/L Alkaline Phosphatase 208 H 40-136 U/L Total Protein 6.9 6.4-8.2 GM/DL Albumin 4.1 3.2-4.5 GM/DL Amylase Level 50 25-125 U/L Lipase 23 8-78 U/L Urine Color ORANGE Urine Clarity CLEAR Urine pH 7.0 5-9 Urine Specific [place] 1.015 L 1.016-1.022 Urine Protein 1+ H NEGATIVE Urine Glucose (UA) NEGATIVE NEGATIVE Urine Ketones NEGATIVE NEGATIVE Urine Nitrite NEGATIVE NEGATIVE Urine Bilirubin NEGATIVE NEGATIVE Urine Urobilinogen 1.0 < = 1.0 MG/DL Urine Leukocyte Esterase TRACE H NEGATIVE Urine RBC (Auto) 3+ H NEGATIVE Urine RBC 50-100 H /HPF Urine WBC 2-5 /HPF Urine Squamous Epithelial Cells 2-5 /HPF Urine Crystals PRESENT H /LPF Urine Amorphous Sediment FEW MICHELLE PHOSPHATE H /LPF Urine Bacteria FEW H /HPF Urine Casts NONE /LPF Urine Mucus NEGATIVE /LPF Urine Culture Indicated YES My Orders Orders - ISACC VIEIRA DO Urine Bedside (04/04/21 01:22) Ua Culture If Indicated (04/04/21 01:22) Urine Culture (04/04/21 01:12) Ed Iv/Invasive Line Start (04/04/21 01:55) Ct Abd/Pelv W (Appendicitis) (04/04/21 01:55) Acute Abd Series (04/04/21 01:55) Amylase (04/04/21 01:55) Cbc With Automated Diff (04/04/21 01:55) Comprehensive Metabolic Panel (04/04/21 01:55) Lipase (04/04/21 01:55) Ondansetron Injection (Zofran Injectio (04/04/21 02:00) Ed Iv/Invasive Line Start (04/04/21 01:55) Lactated Ringers (Lr 1000 Ml Iv Solution (04/04/21 02:00) Ketorolac Injection (Toradol Injection) (04/04/21 01:55) Pantoprazole Injection (Protonix Injecti (04/04/21 02:00) Manual Differential (04/04/21 01:10) Iohexol Injection (Omnipaque 350 Mg/Ml 1 (04/04/21 02:45) Received Contrast (Hold Metformin- Contr (04/04/21 02:45) Sodium Chloride Flush (Catheter Flush Sy (04/04/21 02:45) Ns (Ivpb) (Sodium Chloride 0.9% Ivpb Bag (04/04/21 02:45) Medications Given in ED Current Medications Medications Dose Ordered Sig/Rolo Route Start Time Stop Time Status Last Admin Dose Admin Iohexol 100 ml ONCE ONCE IV 04/04/21 02:45 04/04/21 02:47 DC 04/04/21 02:50 100 ML Lactated Ringer's 1,000 ml @ 0 mls/hr Q0M ONCE IV 04/04/21 02:00 04/04/21 02:01 DC 04/04/21 02:05 0 MLS/HR Ondansetron HCl 4 mg ONCE ONCE IVP 04/04/21 02:00 04/04/21 02:01 DC 04/04/21 02:05 4 MG Pantoprazole 40 mg ONCE ONCE IV 04/04/21 02:00 04/04/21 02:01 DC 04/04/21 02:05 40 MG Sodium Chloride 10 ml NEEDED PRN IV 04/04/21 02:45 04/04/21 02:50 10 ML Sodium Chloride 100 ml ONCE ONCE IV 04/04/21 02:45 04/04/21 02:47 DC 04/04/21 02:50 80 ML Vital Signs/I&O 04/04/21 01:04 Temp 36.5 Pulse 96 Resp 18 B/P (MAP) 146/96 (113) Pulse Ox 99 O2 Delivery Room Air Blood Pressure Mean: 113 Departure Impression Primary Impression: Cholelithiasis Disposition: 01 HOME, SELF-CARE Condition: Improved Departure-Patient Inst. Decision time for Depature: 03:13 Referrals: REBEKA WHITTINGTON MD (PCP/Family) Primary Care Physician SAMEER WHITE MD Patient Instructions: Gallbladder Diet, Gallstones Add. Discharge Instructions: CLEAR LIQUIDS FOR THE NEXT 24 HOURS, THEN START GALLBLADDER DIET FOLLOW UP WITH DR. WHITE OR SURGEON OF CHOICE THIS WEEK FOR FURTHER CARE--CALL TODAY TO MAKE AN APPOINTMENT All discharge instructions reviewed with patient and/or family. Voiced understanding. Scripts Hydrocodone/Acetaminophen (Hydrocodone-Acetamin 5-325 mg) 1 Each Tablet 1 EACH PO Q4-6 HOURS PRN for PAIN, #20 TAB Prov: ISHA,ISACC K DO 04/04/21 Hyoscyamine Sulfate (Levsin-Sl) 0.125 Mg Tab.subl 0.25 MG SL Q4H, #15 TAB Prov: ISHA,ISACC K DO 04/04/21 Pantoprazole Sodium (Protonix) 40 Mg Tablet.dr 40 MG PO DAILY, #15 TAB Prov: ISHA,ISACC K DO 04/04/21 Ondansetron (Ondansetron Odt) 4 Mg Tab.rapdis 4 MG PO Q4H for Nausea/Vomiting, #10 TAB Prov: ISACC VIEIRA DO 04/04/21 ISACC VIEIRA DO April 04, 2021 03:01
[2021-04-04] MEDS ORDERED: ONDA4TAB11 PO (03:21)
[2021-04-04] MEDS ORDERED: ACHD5005 PO (03:21)
[2021-04-04] MEDS ORDERED: PANT40TA2 PO (03:21)
[2021-04-04] MEDS ORDERED: HYOS0.1283 SL (03:21)
[2021-04-04 03:30] VITALS: BP 119/81
--- NOTE | 2021-04-04 05:29 | Diagnostic Imaging Report ---
INDICATION: abd pain COMPARISON: 07/18/2020 FINDINGS: Supine and upright views of the abdomen show a nondistended bowel gas pattern. No abnormal air fluid levels or free intraperitoneal air is seen. Moderate colonic air and stool is noted. No abnormal extraosseous calcifications are seen. Bony and soft tissue structures are within normal limits. No organomegaly is identified. Accompanying upright chest shows normal heart size and pulmonary vascularity. The lungs are well aerated and clear. The mediastinum is normal in appearance. IMPRESSION: 1. No bowel obstruction or free air. 2. Normal chest. No pneumonia or pulmonary edema. 3. Moderate amount of colonic air and stool. Please correlate for constipation. Dictated by: Dictated on workstation # [id number]
--- NOTE | 2021-04-04 06:13 | Diagnostic Imaging Report ---
PROCEDURE: CT abdomen and pelvis with contrast, rule out appendicitis. TECHNIQUE: Multiple contiguous axial images were obtained through the abdomen and pelvis after the administration of intravenous contrast. All CT scans use one or more of the following dose optimizing techniques: automated exposure control, MA and/or KvP adjustment based on patient size and exam type or iterative reconstruction. INDICATION: Right lower quadrant abdominal pain. COMPARISON: CT abdomen and pelvis performed on 09/21/2017. FINDINGS: The lung bases are clear. The visualized heart is normal in size. There is a low-attenuation focus with indistinct margins in the posterior right hepatic lobe, which technically indeterminate, however, unchanged dating back to 2016 and presumed to represent a cyst. The liver is otherwise unremarkable. Calcified gallstones fill the gallbladder. There are no findings to suggest gallbladder wall edema or pericholecystic fluid. The spleen, pancreas and adrenal glands are unremarkable. There is no biliary or pancreatic ductal dilatation. The kidneys are symmetric in size and demonstrate normal enhancement, without renal calculus, hydronephrosis, or suspicious mass. No abnormality in the visualized ureters. Stomach and duodenum are unremarkable. Small bowel and colon are normal in course and caliber, without evidence of wall thickening or obstruction. The appendix is normal. There is moderate retained stool noted through much of the colon. There is no pneumoperitoneum, abdominal free fluid or loculated collection. The bladder is normal, within limits of underdistention. The uterus is unremarkable. No suspicious adnexal mass or pelvic free fluid is demonstrated. The aorta is nonaneurysmal. There is no evidence of venous thrombosis. No lymphadenopathy is appreciated. The abdominal wall is unremarkable. No acute osseous abnormality is identified. Incidental note is made of bilateral pars interarticularis defect of the L4 vertebral body. IMPRESSION: Cholelithiasis, without CT findings to suggest acute cholecystitis. CT scan is otherwise unremarkable. The appendix is normal. Findings are in agreement with initial teleradiology report. Dictated by: Dictated on workstation # [id number]
== END 2021-04-04 03:30 | disposition home or self-care (01) ==
LOC: EDUNIT# 00:42 → ER 00:43
DX: K80.20 Calculus of gallbladder without cholecystitis without obstruction (principal); G40.909 Epilepsy, unspecified, not intractable, without status epilepticus; G80.9 Cerebral palsy, unspecified; Z79.899 Other long term (current) drug therapy
CPT/HCPCS: 36415; 74022; 74177; 80053; 81000; 82150; 83690; 84703; 85007; 85027; 87088

== ENCOUNTER 2021-04-14 05:42 | Outpatient (CLI) | payer MEDICAID ==
[~2021-04-14] VITALS: Ht 157.5 cm; Wt 105.1 kg
[~2021-04-14 05:42] MED LIST changes: +ACHD5005 PO; +HYOS0.1283 SL; +ONDA4TAB11 PO; +PANT40TA2 PO
[2021-04-14] MEDS ORDERED: PNV1TABL81 PO (14:21)
[2021-04-14] MEDS ORDERED: FOLI1TAB33 PO (14:21)
[2021-04-14] MEDS ORDERED: TOPI100T11 PO (14:21)
[2021-04-14] MEDS ORDERED: LACO50TA2 PO (14:21)
[2021-04-14] MEDS ORDERED: LORA-407 PO (14:21)
== END 2021-04-14 14:36 | disposition home or self-care (01) ==
LOC: PREOP 05:42
PROVIDERS: ATTEND Surgery
DX: Z01.818 Encounter for other preprocedural examination (principal)

== ENCOUNTER 2021-04-21 07:16 | Day surgery (SDC) | payer MEDICAID ==
[2021-04-21] VITALS (12 sets, daily range): BP systolic 95–120; BP diastolic 57–77
[~2021-04-21] VITALS: Ht 157.5 cm; Wt 105.1 kg
[~2021-04-21 07:16] MED LIST changes: +FOLI1TAB33 PO; +LACO50TA2 PO; +LORA-407 PO; +PNV1TABL81 PO; +TOPI100T11 PO
[2021-04-21] MEDS ORDERED: ceFAZolin INJECTION 1,000 MG in WATER (STERILE) FOR INJECTION 10 ML IV ONE (07:30)
[2021-04-21] MEDS: LACTATED RINGERS 1,000 ML IV PRN ×2 (08:02→09:30)
[2021-04-21] MEDS ORDERED: LIDOCAINE/EPI 1%-1:100,000 (XYLOCAINE) 20ML ONE (08:22)
[2021-04-21] MEDS ORDERED: IOPAMIDOL 61% 30 ML (ISOVUE 300) VIAL ONE (08:22)
[2021-04-21] MEDS ORDERED: fentaNYL INJ 100 MCG/2 ML AMP ONE (08:33)
[2021-04-21] MEDS ORDERED: SEVOFLURANE (ULTANE) 15 ML INHAL SOLN ONE (08:33)
[2021-04-21] MEDS ORDERED: proPOfol 200 MG/20 ML (DIPRIVAN) VIAL IV ONE (08:33)
[2021-04-21] MEDS ORDERED: ROCURONIUM 10 MG/ML 5 ML SYRINGE IV ONE (08:33)
[2021-04-21] MEDS ORDERED: ONDANSETRON 4 MG/2 ML (SDV) Z0FRAN ONE (08:33)
[2021-04-21] MEDS ORDERED: MIDAZOLAM 2 MG/2 ML (VERSED) VIAL ONE (08:33)
--- NOTE | 2021-04-21 08:43 | Progress Note-Pre Operative ---
Pre-Operative Progress Note H&P Reviewed The H&P was reviewed, patient examined and no changes noted. Date Seen by Provider: Apr 21, 2021 Time Seen by Provider: 08:43 Date H&P Reviewed: Apr 21, 2021 Time H&P Reviewed: 08:43 Pre-Operative Diagnosis: cholelithiasis KARLO KIM DO Apr 21, 2021 08:43
[2021-04-21] MEDS ORDERED: NEOSTIGMINE 3 MG/3 ML VIAL ONE (08:58)
[2021-04-21] MEDS ORDERED: GLYCOPYRROLATE 0.2 MG/ML (ROBINUL) 2 ML VIAL ONE (08:58)
--- NOTE | 2021-04-21 09:44 | Progress Note-Post Operative ---
Post-Operative Progess Note Surgeon (s)/Rfid Analyst (s) Surgeon KARLO KIM DO Rfid Analyst: Dr. Rae to assist in retraction dissection and closure. Pre-Operative Diagnosis cholelithiasis Post-Operative Diagnosis same chronic cholecystitis Procedure & Operative Findings Date of Procedure 04/21/21 Procedure Performed/Findings PROCEDURE: Laparoscopic cholecystectomy with intraoperative cholangiogram. COMPLICATIONS: None. PROCEDURE: The patient was taken to the operating suite and was prepped and draped in sterile fashion. A surgical pause was performed. Just superior to the umbilicus, a 12 mm incision was made. Dissection was taken down to the fascia, which was then scored and grasped with a Jeannette and the abdomen was then entered. A 0 Vicryl suture was placed in a oruhmh-cy-xefsw fashion and a Reyes trocar was placed and secured. Pneumoperitoneum was achieved. A 5mm trochar place in the subxyphoid and 2 in the right upper quadrant. The gallbladder had adhesions to it which were taken down and appeared to have chronic cholecystitis. It was then grasped and elevated. The cystic duct, and cystic artery were then dissected out. Clip was placed on the distal portion of the cystic duct which was then partially transected. An arrow catheter was inserted into the duct. The cholangiogram was then performed. No filing defects and contrast made its way into the duodenum. Catheter removed. Clips were placed on proximal portion of the cystic duct and then the duct was then transected. Clips were placed along the proximal and distal portion of the cystic artery which was then transected. Hook cautery was used to dissect the gallbladder from the gallbladder fossa achieving hemostasis. The gallbladder was placed in an Endobag and removed through the 12 mm trocar site. The abdomen was then reinspected. Copious amounts of irrigation were used to irrigate the abdomen and there were no signs of active bleeding. Hemostasis had been achieved. The 12 mm fascial defect was then closed with 0 Vicryl suture that had been placed in a gljumf-kz-cqalz fashion. The abdomen was then desufflated, the trocars were removed. The abdomen was then washed and dried. The skin was then closed using 4-0 Monocryl in a subcuticular fashion. The abdomen was washed and dried and Skin Affix was place over incisions. Patient tolerated the procedure well without any complications and was taken to the recovery room in stable condition. Anesthesia Type general Estimated Blood Loss Estimated blood loss (mL): minimal Specimens/Packing Specimens Removed gallbladder KARLO KIM DO Apr 21, 2021 09:44
[2021-04-21] MEDS ORDERED: DOCU-143 PO (09:47)
[2021-04-21] MEDS ORDERED: ACHD5005 PO (09:47)
--- NOTE | 2021-04-21 09:50 | Discharge Inst-Simple/Standard ---
Discharge Inst-Standard Discharge Medications New, Converted or Re-Newed RX: Transmitted to Pharmacy Patient Instructions/Follow Up Plan of Care/Instructions/FU: 2 weeks Kaley Activity as Tolerated: No Discharge Diet: Regular Diet Other Inst to Patient Follow up Appt: Make appointment for 2 weeks. Instructions: No lifting greater than 10 pounds. No strenuous activity. May shower in 24 hours, no tub bath or soaking. Use incentive spirometer at home as directed. No Smoking Skin/Wound Care: You have special glue over incision, it will fall off on it's own. Symptoms to Report: Appetite Changes, Extremity Discoloration, Numbness/Tingling, Swelling Increased, Bleeding Excessive, Eyesight Changes, Pain Increased, Urine Color Change, Constipation(Persistent), Fever over 101 degree F, Pain/Pressure in chest, Urinating Difficulty, Cough Up/Vomit Blood, Heart Beat Irreg/Pounding, Pain/Pressure in jaw, Vaginal Bleeding Increase, Cramps in feet or legs, Lightheadedness, Pain/Pressure in shoulder, Diarrhea(Persistent), Memory Changes Suddenly, Questions/Concerns, Weight gain consecutive days, Dizziness/Fainting, Nausea/Vomiting, Shortness of Breath, Weight gain over 2 pounds. If eyes or skin turn yellow notify physician. If questions or concerns contact your physician Or seek help at emergency department. KARLO KIM DO Apr 21, 2021 09:50
[2021-04-21] MEDS ORDERED: HYDROmorphone 2 MG/ML VIAL (DILAUDID) IV ONE (10:00)
[2021-04-21] MEDS ORDERED: ONDANSETRON 4 MG/2 ML (SDV) Z0FRAN IVP PRN (10:00)
[2021-04-21] MEDS ORDERED: morphine INJ 10 MG/ML 1ML (SYR OR VIAL) IVP ONE (10:00)
--- NOTE | 2021-04-21 10:27 | Anesthesia-General Post-Op ---
General Patient Condition Mental Status/LOC: Same as Preop Cardiovascular: Satisfactory Nausea/Vomiting: Absent Respiratory: Satisfactory Pain: Controlled Complications: Absent Post Op Complications Complications None Follow Up Care/Instructions Patient Instructions None needed. Anesthesia/Patient Condition Patient Condition Patient is doing well, no complaints, stable vital signs, no apparent adverse anesthesia problems. SIRISHA BEAR DO Apr 21, 2021 10:27
--- NOTE | 2021-04-21 10:47 | Diagnostic Imaging Report ---
Fluoroscopy 1 hour at 920h. INDICATION: Abdominal pain Fluoroscopic assistance was provided for Dr. Roche during his laparoscopic cholecystectomy procedure. 8.9 seconds of fluoroscopy time was utilized. 43 spot films of the right upper quadrant were obtained. The common bile duct has been opacified via cystic duct catheter. The common bile duct is not dilated. There is no defect within the duct to suggest a retained calculus but a short segment of the common hepatic duct is obscured by one of the laparoscopic devices. There is extension of the contrast into the small bowel. IMPRESSION: Fluoroscopic assistance was provided for Dr. Roche. Dictated by: Dictated on workstation # [id number]
== END 2021-04-21 12:00 | disposition home or self-care (01) ==
LOC: SDC 07:16
PROVIDERS: ATTEND Surgery
DX: K80.10 Calculus of gallbladder with chronic cholecystitis without obstruction (principal); F41.9 Anxiety disorder, unspecified; E66.01 Morbid (severe) obesity due to excess calories; R56.9 Unspecified convulsions; Z79.891 Long term (current) use of opiate analgesic; Z68.41 Body mass index [BMI] 40.0-44.9, adult; Z79.899 Other long term (current) drug therapy
CPT/HCPCS: 76000; 84703; 87081

== ENCOUNTER 2021-10-29 16:33 | Emergency (ER) | payer MEDICAID ==
[~2021-10-29] VITALS: Ht 160 cm; Wt 108.8 kg
[~2021-10-29 16:33] MED LIST changes: +DOCU-143 PO
--- NOTE | 2021-10-29 17:46 | ED Lower Extremity ---
General Chief Complaint: Lower Extremity Stated Complaint: R FOOT PAIN Nursing Triage Note: PT AMB TO FT3 WITH COMPLAINT OF FOOT PAIN THAT STARTED IN THE LAST 24 HOURS. DENIES INJURY. Source: patient Exam Limitations: no limitations History of Present Illness Date Seen by Provider: Oct 29, 2021 Time Seen by Provider: 17:44 Initial Comments To ER with reports of right foot and ankle pain for 3 weeks without known cause. There was no preceding injury. Onset: other (3 weeks) Severity: moderate Pain/Injury Location: right foot, right ankle Modifying Factors: Worse With Movement Allergies and Home Medications Allergies Coded Allergies: phenobarbital (Verified Allergy, Intermediate, 10/11/13) seizures last longer Patient Home Medication List Home Medication List Reviewed: Yes Docusate Sodium (Colace) 100 Mg Capsule, 100 MG PO DAILY Prescribed by: KARLO KIM on 04/21/21 0947 Folic Acid (Folic Acid) 1 Mg Tablet, 1 MG PO DAILY, (Reported) Entered as Reported by: MALIK SALAS on 04/14/211420 Hydrocodone/Acetaminophen (Hydrocodone-Acetamin 5-325 mg) 1 Each Tablet, 1 EACH PO Q4H PRN for PAIN-MODERATE (5-7) Prescribed by: KARLO KIM on 04/21/21 0949 Lacosamide (Vimpat) Unknown Strength Tablet, 1 TAB PO BID, (Reported) Entered as Reported by: MALIK SALAS on 04/14/211420 Lorazepam (Ativan) Unknown Strength Tablet, 1 TAB PO UD PRN for SEIZURE ACTIVITY, (Reported) Entered as Reported by: MALIK SALAS on 04/14/211420 Pnv No.122/Iron/Folic Acid ( Multi Tablet) 1 Each Tablet, 1 EACH PO DAILY, (Reported) Entered as Reported by: MALIK SALAS on 04/14/211420 Topiramate (Topiramate) Unknown Strength Tablet, 1 TAB PO BID, (Reported) Entered as Reported by: MALIK SALAS on 04/14/211420 Review of Systems Constitutional: see HPI EENTM: see HPI Respiratory: no symptoms reported Cardiovascular: no symptoms reported Genitourinary: no symptoms reported Musculoskeletal: no symptoms reported Skin: no symptoms reported Psychiatric/Neurological: No Symptoms Reported Past Bccqtfj-Vyheyv-Nnpjgh Hx Patient Social History Tobacco Use?: No Use of E-Cig and/or Vaping dev: No Substance use?: No Alcohol Use?: No Pt feels they are or have been: No Seasonal Allergies Seasonal Allergies: No Past Medical History Surgery/Hospitalization HX: CEREBRAL PALSY Surgeries: Yes (right ankle, dental) Orthopedic Respiratory: No Cardiac: No Neurological: Yes (cerebral palsey, intellectual disability) Cerebral Palsy, Developmental Disorder, Seizure Disorder Reproductive Disorders: No Genitourinary: No Gastrointestinal: Yes Gall Bladder Disease Musculoskeletal: Yes (right sided weakness; CEREBRAL PALSY) Contracture Endocrine: No HEENT: No Cancer: No Psychosocial: No Integumentary: No Blood Disorders: No Adverse Reaction/Blood Tranf: No Family Medical History No Pertinent Family Hx Physical Exam Vital Signs Vital Signs - First Documented 10/29/21 16:47 Pulse 99 Resp 16 B/P (MAP) 115/77 (90) Pulse Ox 97 O2 Delivery Room Air Capillary Refill : Less Than 3 Seconds Height, Weight, BMI Height: 5'3.00" Weight: 197lbs. oz. 89.168213mr; 42.00 BMI Method:Stated General Appearance: WD/WN, no apparent distress HEENT: PERRL/EOMI, normal ENT inspection Respiratory: no respiratory distress, no accessory muscle use Hips: bilateral hip non-tender, bilateral hip normal inspection, bilateral hip normal range of motion Legs: bilateral leg non-tender, bilateral leg normal inspection, bilateral leg normal range of motion Knees: bilateral knee non-tender, bilateral knee normal inspection, bilateral knee normal range of motion Ankles: right ankle pain, right ankle swelling Feet: bilateral foot non-tender, bilateral foot normal inspection, bilateral foot normal range of motion Neurologic/Psychiatric: alert, normal mood/affect, oriented x 3 Skin: normal color, warm/dry Progress/Results/Core Measures Results/Orders My Orders Orders - MERLIN CLAIRE APRN Ankle, Right, 3 Views (10/29/21 17:43) Foot, Right, 3 View (10/29/21 17:43) Vital Signs/I&O 10/29/21 16:47 Pulse 99 Resp 16 B/P (MAP) 115/77 (90) Pulse Ox 97 O2 Delivery Room Air Blood Pressure Mean: 90 Departure Impression Primary Impression: Ankle pain Disposition: 01 HOME, SELF-CARE Condition: Stable Departure-Patient Inst. Decision time for Depature: 18:08 Referrals: REBEKA WHITTINGTON MD (PCP/Family) Primary Care Physician Patient Instructions: Acute Pain, Adult Add. Discharge Instructions: . Follow up with an orthopedist of your choosing. Return to ER fora ny concerns. You may stop wearing the boot if the pain subsides. All discharge instructions reviewed with patient and/or family. Voiced understanding. MERLIN CLAIRE CIGAR BINDER Oct 29, 2021 17:46
--- NOTE | 2021-10-29 18:36 | Diagnostic Imaging Report ---
EXAM: ANKLE, RIGHT, 3 VIEWS INDICATION: Right ankle pain. COMPARISON: 10/11/2013. FINDINGS: No fracture or malalignment. At least mild degenerative changes in the right tibiotalar joint have developed since the prior exam. Soft tissue shadows are unremarkable. IMPRESSION: 1. No acute radiographic findings in the right ankle. 2. There are at least mild degenerative changes in the right tibiotalar joint but have developed since 2012. These are greater than expected for age. Dictated by: Dictated on workstation # [id number]
--- NOTE | 2021-10-29 18:37 | Diagnostic Imaging Report ---
EXAM: FOOT, RIGHT, 3 VIEW INDICATION: Right foot pain x3 weeks. COMPARISON: None. FINDINGS: No fracture or malalignment. Soft tissue shadows are unremarkable. Mild degenerative changes in the right midfoot and tibiotalar joint. IMPRESSION: 1. No acute radiographic findings in the right foot. 2. Mild degenerative changes in the right midfoot and tibiotalar joint. Dictated by: Dictated on workstation # [id number]
[2021-10-29 18:38] VITALS: BP 118/80
== END 2021-10-29 18:38 | disposition home or self-care (01) ==
LOC: EDUNIT# 16:33 → ER 16:34
DX: M25.571 Pain in right ankle and joints of right foot (principal); G80.9 Cerebral palsy, unspecified; G40.909 Epilepsy, unspecified, not intractable, without status epilepticus; Z79.899 Other long term (current) drug therapy
CPT/HCPCS: 73610; 73630; 99283; L2114

== ENCOUNTER 2023-03-17 21:19 | Emergency (ER) | payer MEDICAID ==
[~2023-03-17] VITALS: Ht 160 cm; Wt 95.0 kg
[2023-03-17 21:19] VITALS: BP 116/81
--- NOTE | 2023-03-17 21:50 | Diagnostic Imaging Report ---
INDICATION: Fall. Left ankle pain. FINDINGS: There is a transversely oriented fracture demonstrated of the distal fibula with the fracture line below the level of the talar dome. There is overlying soft tissue swelling. There is no corresponding fracture of the tibia. The talar dome maintains normal morphology. There is a suggestion there may be some slight widening of the ankle mortise. The foot demonstrates no acute process. IMPRESSION: Distal fibular fracture with fracture line below the level of the talar dome. There is overlying soft tissue swelling. There is no tibial fracture but there is a suggestion that there may be some abnormal widening of the ankle mortise. Dictated by: Dictated on workstation # [id number]
--- NOTE | 2023-03-17 22:31 | ED Lower Extremity ---
General Chief Complaint: Lower Extremity Stated Complaint: LEFT ANKLE PAIN Source: patient Exam Limitations: no limitations History of Present Illness Date Seen by Provider: March 17, 2023 Time Seen by Provider: 22:24 Initial Comments Here with complaint of left ankle pain. Arrives via EMS. Patient states she was walking down her steps when she fell on her left leg and on her hands and knees. Did not hit her head or have other injuries. She does have history of cerebral palsy. She uses her left leg mostly for walking and balance. She states that that is her strong leg. She does complain of distal left ankle pain that is much better now. She was hoping that it is just a sprain. Does have minor abrasion to the right knee and states tetanus is up-to-date. Onset: this evening (Few hours ago) Severity: moderate Pain/Injury Location: right ankle Method of Injury: fell, twisted Modifying Factors: Improves With Immobilization; Worse With Movement Allergies and Home Medications Allergies Coded Allergies: phenobarbital (Verified Allergy, Intermediate, 10/11/13) seizures last longer Patient Home Medication List Home Medication List Reviewed: Yes Docusate Sodium (Colace) 100 Mg Capsule, 100 MG PO DAILY Prescribed by: KARLO KIM on 04/21/21 0947 Folic Acid (Folic Acid) 1 Mg Tablet, 1 MG PO DAILY, (Reported) Entered as Reported by: MALIK SALAS on 04/14/21 142 Hydrocodone/Acetaminophen (Hydrocodone-Acetamin 5-325 mg) 1 Each Tablet, 1 EACH PO Q4H PRN for PAIN-MODERATE (5-7) Prescribed by: KARLO KIM on 04/21/21 0949 Lacosamide (Vimpat) Unknown Strength Tablet, 1 TAB PO BID, (Reported) Entered as Reported by: MALIK SALAS on 04/14/21 1421 Lorazepam (Ativan) Unknown Strength Tablet, 1 TAB PO UD PRN for SEIZURE ACTIVITY, (Reported) Entered as Reported by: MALIK SALAS on 04/14/21 1421 Pnv No.122/Iron/Folic Acid ( Multi Tablet) 1 Each Tablet, 1 EACH PO DAILY, (Reported) Entered as Reported by: MALIK SALAS on 04/14/21 1421 Topiramate (Topiramate) Unknown Strength Tablet, 1 TAB PO BID, (Reported) Entered as Reported by: MALIK SALAS on 04/14/21 1421 Review of Systems Constitutional: no symptoms reported Respiratory: no symptoms reported Cardiovascular: no symptoms reported Musculoskeletal: joint pain, joint swelling Skin: change in color, lesions Past Kzejwlv-Bvndrt-Qmlbxx Hx Patient Social History Tobacco Use?: No Seasonal Allergies Seasonal Allergies: No Past Medical History Surgery/Hospitalization HX: CEREBRAL PALSY Surgeries: Yes (right ankle, dental) Orthopedic Respiratory: No Cardiac: No Neurological: Yes (cerebral palsey, intellectual disability) Cerebral Palsy, Developmental Disorder, Seizure Disorder Reproductive Disorders: No Genitourinary: No Gastrointestinal: Yes Gall Bladder Disease Musculoskeletal: Yes (right sided weakness; CEREBRAL PALSY) Contracture Endocrine: No HEENT: No Cancer: No Psychosocial: No Integumentary: No Blood Disorders: No Adverse Reaction/Blood Tranf: No Family Medical History Reviewed Nursing Family Hx No Pertinent Family Hx Physical Exam Vital Signs Capillary Refill : Height, Weight, BMI Height: 5'3.00" Weight: 197lbs. oz. 89.471453cu; 42.00 BMI Method:Stated General Appearance: WD/WN, no apparent distress Cardiovascular: regular rate, rhythm, no murmur Respiratory: lungs clear, normal breath sounds Knees: left knee normal inspection; bilateral knee normal range of motion; right knee other (Few abrasions anterior knee with full range of motion) Ankles: left ankle pain, left ankle soft tissue tenderness, left ankle swelling, left ankle other (All findings to the lateral aspect) Neurologic/Psychiatric: alert, normal mood/affect, oriented x 3 Skin: normal color, warm/dry Progress/Results/Core Measures Results/Orders My Orders Orders - OLENA EVANS MD Ankle, Left, 3 Views (03/17/23 21:25) Steplite (03/17/23 22:57) Progress Progress Note : Progress Note Seen and evaluated. X-ray left ankle ordered. There is obvious distal fibula fracture on my interpretation. Radiology report below. I did discuss the case with Dr. Tidwell at [id number]. Patient has cerebral palsy and the left leg is her strong leg. I did discuss with him about using a walking boot given radiology report of question of mortise widening. I do not see that specifically and he did not either. He believes that walking boot would be fine. We will do that and try to use assistive device with walker. This was discussed with the patient. She believes that will be an effective approach. We will give walking boot and walker. I did discuss pain medicine. We will stick with OTC medicines as she does not really want to take pain medicines especially given her cerebral palsy. Discharged home with return precautions. Patient verbalized un derstanding instructions and agreement with plan. Diagnostic Imaging Diagonstic Imaging: Xray Plain Films/CT/US/NM/MRI: ankle Comments [facility], [place] NAME: DONELL [facility] REC#: [id number] PT STATUS: REG ER : 2000 PHYSICIAN: OLENA EVANS MD ADMIT DATE: 03/17/23/ER Signed Date of Exam:03/17/23 ANKLE, LEFT, 3 VIEWS INDICATION: Fall. Left ankle pain. FINDINGS: There is a transversely oriented fracture demonstrated of the distal fibula with the fracture line below the level of the talar dome. There is overlying soft tissue swelling. There is no corresponding fracture of the tibia. The talar dome maintains normal morphology. There is a suggestion there may be some slight widening of the ankle mortise. The foot demonstrates no acute process. IMPRESSION: Distal fibular fracture with fracture line below the level of the talar dome. There is overlying soft tissue swelling. There is no tibial fracture but there is a suggestion that there may be some abnormal widening of the ankle mortise. Dictated by: Dictated on workstation # [id number] Dict: 03/17/232141 Trans: 03/17/232223 PJE [id number] Interpreted by: SAMANTHA RODRIGUEZ MD Electronically signed by: SAMANTHA RODRIGUEZ MD 03/17/232223 Reviewed: Reviewed by Me Departure Impression Primary Impression: Closed left ankle fracture Qualified Codes: S82.892A - Other fracture of left lower leg, initial encounter for closed fracture Disposition: 01 HOME, SELF-CARE Condition: Stable Departure-Patient Inst. Decision time for Depature: 23:05 Referrals: REBEKA WHITTINGTON MD (PCP/Family) Primary Care Physician AMIRA TIDWELL MD Patient Instructions: Fibula Fracture (DC), Walking Boot Add. Discharge Instructions: All discharge instructions reviewed with patient and/or family. Voiced understanding. You may take ibuprofen 600 mg every 8 hours as needed for pain. You may also take Tylenol/acetaminophen 1000 mg every 8 hours as needed for pain. Use walking boot anytime you are up and about. Use walker for assistance for balance. Call Dr. Tidwell's office on Sunday for appointment. Let them know the case was discussed with him and he will see you in office. You do have of fracture of the end of the fibula on the left. Elevate foot to reduce swelling several times a day. You may use ice packs over area of concern 20 minutes/h as needed to reduce pain and swelling. You may use an Joseluis wrap to area of concern over the next few days to reduce swelling as well. Return for worse pain, numbness or other concerns as needed. Copy Copies To 1: AMIRA TIDWELL MD, TIMOTHY D MD March 17, 2023 22:31
== END 2023-03-17 23:18 | disposition home or self-care (01) ==
LOC: EDUNIT# 21:23 → ER 21:24
DX: S82.832A Other fracture of upper and lower end of left fibula, initial encounter for closed fracture (principal); S80.211A Abrasion, right knee, initial encounter; W10.9XXA Fall (on) (from) unspecified stairs and steps, initial encounter; X50.1XXA Overexertion from prolonged static or awkward postures, initial encounter; Y93.01 Activity, walking, marching and hiking
CPT/HCPCS: 73610